=== PATIENT | female | born 1995 | race Caucasian/White ===

== ENCOUNTER 2017-10-16 22:27 | Emergency (ER) | payer BC ==
[~2017-10-16] VITALS: Ht 160 cm; Wt 60.0 kg
[2017-10-16 22:35] VITALS: BP 114/66; PULSE 82; RESP 18; TEMP 98.4; O2SAT 100
[2017-10-16 22:42] VITALS: BP 115/74; PULSE 74; PULSE 82; RESP 17; O2SAT 99
--- NOTE | 2017-10-16 23:14 | PD ---
HPI Chief Complaint: Chest Pain Time Seen by Provider: 22:44 Travel History International Travel<30 days: No Contact w/Intl Traveler<30days: No Traveled to known affect area: No History of Present Illness HPI 22-year-old white female presents to emergency department accompanied by her father for evaluation of chest pain. The patient states that she was at work this past Wednesday. 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 She states that she was pushing the handle down when her hand slipped causing the handle to strike her in her chest. She states that it had knocked the wind out of her. Since then she's had pain in her chest. She had gone to a event at [employer] earlier this weekend and she noticed increasing shortness of breath when she did increase walking. She states the pain is mild to moderate. Sharp and located to the center of her chest. She states that the pain is improved by rest. She did not make a report to her employer. She has not been sick otherwise. [facility] Past Medical History Medical History: Denies Significant Hx Diminished Hearing: No Tetanus Vaccination: > 5 Years Influenza Vaccination: No ?: Not LMP: 09/27/2017 : 0 Past Surgical History Surgical History: No Previous Surgery Social History Alcohol Use: No Tobacco Use: No Substance Use: No Allergies-Medications (Allergen,Severity, Reaction): Coded Allergies: No Known Allergies (Unverified , 10/16/17) Reported Meds & Prescriptions Reported Meds & Active Scripts Active No Active Prescriptions or Reported Medications Review of Systems General / Constitutional: No: Fever Eyes: No: Visual changes HENT: No: Headaches Cardiovascular: Positive: Chest Pain or Discomfort Respiratory: Positive: Pleuritic Pain, No: Shortness of Breath Gastrointestinal: No: Abdominal Pain Genitourinary: No: Dysuria Musculoskeletal: No: Pain Skin: No Rash Neurologic: No: Weakness Psychiatric: No: Depression Endocrine: No: Polydipsia Hematologic/Lymphatic: No: Easy Bruising Physical Exam Narrative GENERAL: Well-developed, well-nourished in no apparent distress. Nontoxic appearing. HEAD: Normocephalic, atraumatic. EYES: Pupils equal round and reactive. Extraocular motions intact. No scleral icterus. No injection or drainage. ENT: Nose clear. Throat without erythema, tonsillar hypertrophy or exudate. Uvula midline. Airway patent. NECK: Trachea midline. Supple, nontender, moves head freely. No central bony tenderness or spasm. CARDIOVASCULAR: Regular rate and rhythm without murmurs, gallops, or rubs. CHEST: Tenderness to the anterior sternum without deformity or crepitance. No retractions or use of accessory muscles. RESPIRATORY: Clear to auscultation. Breath sounds equal bilaterally. No wheezes , rales, or rhonchi. GASTROINTESTINAL: Abdomen soft, non-tender, nondistended. No hepato-splenomegaly , or palpable masses. No guarding. EXTREMITIES: No clubbing, cyanosis, or edema. No joint tenderness. BACK: Nontender without deformity. No flank tenderness. NEUROLOGICAL: Awake, alert and oriented x 3 .Cranial nerves grossly intact. Motor and sensory grossly within normal limits. Normal speech. Data Data Last Documented VS Vital Signs Date Time Temp Pulse Resp B/P (MAP) Pulse Ox O2 Delivery O2 Flow Rate FiO2 10/16/17 22:42 74 17 115/74 (88) 99 Room Air 10/16/17 22:35 98.4 Orders Orders Electrocardiogram (10/16/17 22:44) Chest, Pa & Lat (10/16/17 22:44) MDM Medical Decision Making Medical Screen Exam Complete: Yes Emergency Medical Condition: Yes Medical Record Reviewed: Yes Interpretation(s) EKG shows NSR, no ST elevation or depression, and no arrhythmias. No significant T-wave inversions. Chest x-ray: Negative for acute infiltrate. No acute pulmonary process. No acute bony injury. Differential Diagnosis MDM: High Differential diagnoses: Fracture, sprain, strain, dislocation, contusion, neurovascular injury Narrative Course Patient sustained a soft tissue chest wall injury earlier this past week. She has had persistent myofascial tenderness. EKG and chest x-ray are unremarkable. Patient is advised to take ibuprofen and follow-up with workman's comp in the next week. Diagnosis Primary Impression: Chest wall contusion Qualified Codes: S20.219A - Contusion of unspecified front wall of thorax, initial encounter Patient Instructions: General Instructions Additional Instructions: Rest. 3 Advil every 6 hours as needed for pain. Follow-up with workman comp doctor in one week. Return to the ER for any problems. Med/Other Pt SpecificInfo: No Meds Exist/No RX given Scripts No Active Prescriptions or Reported Meds Disposition: 01 DISCHARGE HOME Condition: Beck Hazel Oct 16, 2017 23:14
--- NOTE | 2017-10-16 23:32 | RADRPT ---
EXAM DATE/TIME: 10/16/2017 23:18 [facility] COMPARISON: No previous studies available for comparison. INDICATIONS : Shortness of breath. MEDICAL HISTORY : None. SURGICAL HISTORY : None. ENCOUNTER: Initial ACUITY: 1 week PAIN SCORE: 0/10 LOCATION: Bilateral chest FINDINGS: PA and lateral views of the chest demonstrate the lungs to be symmetrically aerated without evidence of mass, infiltrate or effusion. The cardiomediastinal contours are unremarkable. Osseous structure s are intact. CONCLUSION: Normal examination. Chirag Vivas MD on October 16, 2017 at 23:30 Board Certified Radiologist. This report was verified electronically.
--- NOTE | 2017-10-17 13:19 | EKG ---
Date Performed: 10/16/2017 Time Performed: 22:50:29 PTAGE: 22 years EKG: Sinus rhythm WITH SINUS ARRHYTHMIA NORMAL ECG NO PREVIOUS TRACING DOCTOR: Michael Mccracken Interpretating Date/Time 10/17/2017 13:18:15
== END 2017-10-17 00:09 | disposition home or self-care (01) ==
LOC: NEPD 22:27
DX: S20.219A Contusion of unspecified front wall of thorax, initial encounter (principal); W22.8XXA Striking against or struck by other objects, initial encounter; Y93.E5 Activity, floor mopping and cleaning; Y99.0 Civilian activity done for income or pay
CPT/HCPCS: 71046; 93005; 99284